=== PATIENT | male | born 1955 | race Caucasian/White ===

== ENCOUNTER → 2021-07-11 10:00 | Outpatient (BNVA) | payer MEDICARE, SELFPAY | PROVIDERS: Family Provider Nurse Practitioner; PCP Family Medicine; Visit Provider Surgery | DX: Z86.010 Personal history of colon polyps (principal) | CPT/HCPCS: 99203 ==

== ENCOUNTER 2021-10-11 08:34 | Day surgery (SDC) | payer MEDICARE, SELFPAY ==
[2021-10-11 09:07] VITALS: BP 122/78; PULSE 73; RESP 16; TEMP 36.3; O2SAT 98; BMI 24.4
[2021-10-11] MEDS: sodium chloride 0.9% 1,000 ML 30 ML IV (09:19)
--- NOTE | 2021-10-11 09:48 | ANES.PREANE2 ---
Pre-Anesthetic Assessment Height/Weight: Height 1.83 m Weight 81.647 kg Temp Pulse Resp BP Pulse Ox O2 Del Method 97.3 F L 73 16 122/78 98 10/11/21 09:07 10/11/21 09:07 10/11/21 09:07 10/11/21 09:07 10/11/21 09:07 10/11/21 09:07 Preop Diagnosis: History of colon polyps Operation Date: 10/11/21 10:00 Proposed Procedures p Colonoscopy 57753/Z86.010(Not Applicable) - Calvin Mccracken MD Familial anesthetic complications: None Was Beta Abigail taken within 24 hours: N/A Was Clonidine taken within 24 hours: N/A Last intake: Intake Last Liquid Date 10/10/21 Last Liquid Time 20:00 Last Solid Date 10/09/21 Last Solid Time 18:00 Social Tobacco (Vapes ) and No alcohol Exam alert, oriented x 3, clear to auscultation bilaterally and regular rate & rhythm Airway Submandibular: within normal limits Cervical ROM: within normal limits Mallampati: Class II Dentition: chipped (Multiple chipped upper front teeth ) Pulmonary Chronic Obstructive Pulmonary Disease CV/HEM Atrial Fibrillation PFO Loop recorder in place None reported Hepatic None reported GI None reported Metabolic Hyperlipidemia [facility] [place] None reported Neuropsych Cerebrovascular Accident (Multiple small strokes, last 2017 has residual LUE weakness ) Anesthetic Plan ASA status: 3 Anesthesia: Anesthesia Evaluation, General and MAC Other: I discussed with the patient risks, goals, and benefits of MAC and general anesthesia. We discussed spectrum of MAC anesthesia including conversion to general as well as possibility of recall of intraoperative stimuli including discomfort/pain. Patient agrees to proceed with MAC. Risk of > 500 ml blood loss (7ml/kg in children): No Medications/Allergies Home Medications Medication Instructions Recorded Confirmed Last Taken Type acetaminophen 650 mg 650 mg PO Q8H PRN Pain 07/11/21 10/10/21 10/10/21 History tablet,extended release (Tylenol Arthritis Pain) albuterol sulfate 90 mcg/actuation 2 puff inhalation Q6H PRN 07/11/21 10/10/21 10/11/21 History aerosol inhaler Shortness Of Breath Or Wheezing apixaban 5 mg tablet (Eliquis) 5 mg PO BID 07/11/21 10/10/21 10/08/21 History atorvastatin 40 mg tablet 40 mg PO DAILY 07/11/21 10/10/21 10/10/21 History gabapentin 300 mg capsule 300 mg PO DAILY 07/11/21 10/10/21 10/10/21 History potassium citrate 10 mEq (1,080 10 meq PO TID 07/11/21 10/10/21 10/10/21 History mg) tablet,extended release Allergies Allergy/AdvReac Type Severity Reaction Status Date / Time No Known Allergies Allergy Verified 10/11/21 09:06 Current Medications Generic Name Dose Route Start Last Admin Trade Name Freq PRN Reason Stop Dose Admin Sodium Chloride 1,000 mls @ 30 mls/hr 10/11/21 09:00 10/11/21 09:19 Sodium Chloride 0.9% IV 10/12/21 08:59 30 mls/hr .Q24H NEL Administration PFSH Anesthesia Family History Other Cancer Social History Smoking and tobacco status: former smoker Data Anesthesia Cardiac Studies: No Data to Display
--- NOTE | 2021-10-11 10:07 | P.HP_ITS ---
Same Day Surgery H&P Indication for Procedure/HPI DATE OF PROCEDURE: October 11, 2021 CHIEF COMPLAINT/INDICATIONFOR SURGICAL PROCEDURE: History of colon polyps PREOP DIAGNOSIS: History of colon polyps PLANNED PROCEDURE: Operation Date: 10/11/21 10:00 Proposed Procedures p Colonoscopy 42657/Z86.010(Not Applicable) - Calvin Mcrcacken MD This is a pleasant 66 years old gentleman comes today for surveillance colonoscopy because of history of colon polyps ROS All systems have been reviewed negative except as for the above or per problem list. Medications/Allergies* Home Medications Medication Instructions Recorded Confirmed Type acetaminophen 650 mg 650 mg PO Q8H PRN Pain 07/11/21 10/10/21 History tablet,extended release (Tylenol Arthritis Pain) albuterol sulfate 90 mcg/actuation 2 puff inhalation Q6H PRN 07/11/21 10/10/21 History aerosol inhaler Shortness Of Breath Or Wheezing apixaban 5 mg tablet (Eliquis) 5 mg PO BID 07/11/21 10/10/21 History atorvastatin 40 mg tablet 40 mg PO DAILY 07/11/21 10/10/21 History gabapentin 300 mg capsule 300 mg PO DAILY 07/11/21 10/10/21 History potassium citrate 10 mEq (1,080 10 meq PO TID 07/11/21 10/10/21 History mg) tablet,extended release Allergies/Adverse Reactions Allergy/AdvReac Type Severity Reaction Status Date / Time No Known Allergies Allergy Verified 10/11/21 10:07 Current Medications: Generic Name Dose Route Start Last Admin Trade Name Freq PRN Reason Stop Dose Admin Sodium Chloride 1,000 mls @ 30 mls/hr 10/11/21 09:00 10/11/21 09:19 Sodium Chloride 0.9% IV 10/12/21 08:59 30 mls/hr .Q24H NEL Administration Pertinent History/Comorbid Conditions* Family History (Updated 07/11/21 @ 10:16 by Jerilyn Monroe MA) Cancer Social History Smoking and tobacco status: former smoker Pertinent Exam Findings alert, oriented x 3, regular rate & rhythm and procedure specific exam findings (Right paramedian scar otherwise nontender nondistended soft) Recommendations Surgery/Procedure today (Colonoscopy with possible Bx) Coding Level of Care Code Acute [employer]aging [employer] for Prakash Strauss
[2021-10-11 10:34] VITALS: BP 111/63; RESP 18; TEMP 36.2; O2SAT 99
[2021-10-11 10:48] VITALS: BP 128/76; PULSE 63; RESP 18; TEMP 36.3; O2SAT 100
--- NOTE | 2021-10-11 11:23 | ANE.PACU2 ---
Inpatient post-anesthesia follow up: Airway intact: Yes Vital signs: Temperature 97.4 F Pulse Rate 63 Respiratory Rate 18 Blood Pressure 128/76 Pulse Oximetry 100 Oxygen Delivery Me thod Room Air Oxygen Flow Rate Fraction of Inspir ed Oxygen Hydration adequate: Yes Nausea and vomiting: No Pain level: 1 Mental status: Baseline
== END 2021-10-11 11:06 | disposition home or self-care (01) ==
PROVIDERS: PCP Family Medicine; Visit Provider Surgery
PROC: 0DJD8ZZ Inspection of Lower Intestinal Tract, Via Natural or Artificial Opening Endoscopic (ICD-10-PCS; CPT 45378; principal; 2021-10-11 10:00)
DX: Z12.11 Encounter for screening for malignant neoplasm of colon (principal); Z86.010 Personal history of colon polyps; K57.30 Diverticulosis of large intestine without perforation or abscess without bleeding; D12.5 Benign neoplasm of sigmoid colon; Z87.891 Personal history of nicotine dependence; J44.9 Chronic obstructive pulmonary disease, unspecified; I48.91 Unspecified atrial fibrillation; E78.5 Hyperlipidemia, unspecified; Z86.73 Personal history of transient ischemic attack (TIA), and cerebral infarction without residual deficits
CPT/HCPCS: 45385; J2704; J7030

== ENCOUNTER → 2024-09-07 10:17 | Outpatient (BNVA) | payer MEDICARE, SELFPAY | PROVIDERS: PCP Family Medicine; Visit Provider Nurse Practitioner Family | DX: L29.89 Other pruritus (principal); L28.0 Lichen simplex chronicus; I78.8 Other diseases of capillaries; L82.1 Other seborrheic keratosis; D48.5 Neoplasm of uncertain behavior of skin | CPT/HCPCS: 11102; 99204 ==

== ENCOUNTER → 2024-10-07 11:13 | Outpatient (BNVA) | payer MEDICARE, SELFPAY | PROVIDERS: PCP Family Medicine; Visit Provider Nurse Practitioner Family | DX: L29.89 Other pruritus (principal); L82.1 Other seborrheic keratosis | CPT/HCPCS: 99214 ==